=== PATIENT | male | born 1980 | race African-American/Black ===

== ENCOUNTER 2019-09-19 18:57 | Emergency (ER) | payer MEDICAID ==
[~2019-09-19] VITALS: Ht 185.4 cm; Wt 118.0 kg
[2019-09-19] MEDS ORDERED: KEPP500 PO (19:04)
[2019-09-19] MEDS ORDERED: LEVETIRACETAM 500MG TABLET PO ONE (20:30)
[2019-09-19] MEDS ORDERED: IBUPROFEN 600MG TABLET PO ONE (20:30)
[2019-09-19] MEDS ORDERED: ACETAMINOPHEN 325MG TABLET PO ONE (21:00)
[2019-09-19 21:42] LABS: CLARITY URINE CLEAR (CLEAR); COLOR URINE YELLOW (YELLOW); KETONES URINE NEGATIVE (NEGATIVE); LEUKOCYTE ESTERASE URINE NEGATIVE (NEGATIVE); NITRITE URINE NEGATIVE (NEGATIVE); OCCULT BLOOD URINE NEGATIVE (NEGATIVE); PH URINE 6.5 (4.5-8.0); PROTEIN URINE NEGATIVE (NEGATIVE); SPECIFIC GRAVITY URINE 1.004 (1.005-1.030); UROBILINOGEN URINE 0.2 E.U./dL (0.2-1.0)
[2019-09-19 21:51] LABS: *AMPHETAMINES SCREEN URINE NEGATIVE (NEGATIVE); *BARBITURATES SCREEN URINE NEGATIVE (NEGATIVE); *BENZODIAZEPINES SCREEN URINE NEGATIVE (NEGATIVE); *COCAINE SCREEN URINE NEGATIVE (NEGATIVE); METHADONE URINE SCREEN NEGATIVE (NEGATIVE)
[2019-09-19 21:52] LABS: CANNABINOID URINE SCREEN PRESUMTIVE POSITIVE (NEGATIVE); OPIATES URINE SCREEN NEGATIVE (NEGATIVE); PHENCYCLIDINE URINE SCREEN NEGATIVE (NEGATIVE)
[2019-09-20 06:20] VITALS: BP 126/55
== END 2019-09-20 06:42 | disposition home or self-care (01) ==
LOC: ER 19:12
DX: R10.9 Unspecified abdominal pain (principal); K46.9 Unspecified abdominal hernia without obstruction or gangrene; Z59.0 Homelessness; Z98.890 Other specified postprocedural states
CPT/HCPCS: 80305; 81003; 99285

== ENCOUNTER 2019-09-28 21:49 | Emergency (ER) | payer MEDICAID ==
[~2019-09-28] VITALS: Ht 177.8 cm; Wt 136.0 kg
[~2019-09-28 21:49] MED LIST: KEPP500 PO
[2019-09-29] MEDS ORDERED: SODIUM CHLORIDE 0.9% 1,000 ML IV ONE (02:43)
[2019-09-29 03:02] LABS: HEMATOCRIT. 35.8 % (42.0-52.0); HEMOGLOBIN. 12.2 g/dL (14.0-18.0); MEAN CORPUSCULAR HEMOGLOBIN 29.3 pg (28.0-32.0); MEAN CORPUSCULAR VOLUME 85.5 fL (80.0-94.0); MEAN PLATELET VOLUME 7.5 fl (7.4-10.4); PLATELET 216 x1000/uL (130-400); RED BLOOD CELL COUNT 4.18 mill/uL (4.7-6.1); RED CELL DISTRIBUTION WIDTH 14.2 % (11.6-14.6)
[2019-09-29 03:12] LABS: CHLORIDE 108 mEq/L (98-107)
[2019-09-29 03:17] LABS: ETHANOL BLOOD 209 mg/dL
[2019-09-29 03:52] LABS: PLATELET ESTIMATE NORMAL
[2019-09-29 09:26] VITALS: BP 148/82
== END 2019-09-29 10:29 | disposition home or self-care (01) ==
LOC: ER 21:49
DX: R45.851 Suicidal ideations (principal); F10.10 Alcohol abuse, uncomplicated; I10 Essential (primary) hypertension; F17.200 Nicotine dependence, unspecified, uncomplicated; Z59.0 Homelessness; Y90.7 Blood alcohol level of 200-239 mg/100 ml
CPT/HCPCS: 36415; 80053; 80320; 85025; 99283; J7030; G0480